=== PATIENT | female | born 1995 | race Hispanic/Latino ===

== ENCOUNTER 2021-12-10 22:11 | Emergency (ER) | payer OTHER ==
[2021-12-11] MEDS ORDERED: Ibuprofen 200 MG TAB ONE (01:25)
== END 2021-12-11 02:14 | disposition home or self-care (01) ==
LOC: CSHERS 22:11
DX: H61.21 Impacted cerumen, right ear (principal)
CPT/HCPCS: 69209

== ENCOUNTER 2022-05-14 10:57 | Emergency (ER) | payer OTHER | END 2022-05-14 12:00 | disposition home or self-care (01) | LOC: CSHERS 10:57 | DX: U07.1 COVID-19 (principal) | CPT/HCPCS: 99284; U0003; U0005 ==

== ENCOUNTER 2023-04-06 21:22 | Emergency (ER) | payer OTHER ==
[2023-04-06 22:37] LABS: #Monocytes 0.6 10x3/uL (0.0-1.1); #Neutrophils 6.2 10x3/uL (1.5-8.4); %Basophils 0.2 % (0.0-2.0); %Eosinophils 0.5 % (0.0-6.0); %Lymphocytes 20.8 % (18.0-47.0); %Monocytes 6.4 % (0.0-10.0); %Neutrophils 71.9 % (40.0-75.0); Hemoglobin 12.9 g/dL (12.0-15.5); Mean Corpuscular HGB CONC 33.6 g/dL (32.0-36.0); Mean Corpuscular Hemoglobin 30.9 pg (27.0-33.0); Mean Corpuscular Volume 91.9 fl (81.6-98.3); Mean Platelet Volume 9.3 fl (7.4-10.4); Platelet Count 299 10x3/uL (150-450); RBC Distribution Width 13.1 % (11.5-14.5); Red Blood Cell (RBC) Count 4.18 10x6/uL (3.90-5.03); White Blood Cell (WBC) Count 8.6 10x3/uL (3.5-10.5)
[2023-04-06 22:45] LABS: ALT (SGPT) 53 U/L (8-55); AST (SGOT) 43 U/L (5-34); Albumin 4.4 g/dL (3.5-5.0); Alkaline Phosphatase 59 U/L (40-110); Anion Gap 15 mmol/L (10-20); BUN (Urea Nitrogen) 11 mg/dL (7.0-18.7); Bilirubin, Total 0.5 mg/dL (0.2-1.2); Calc. Creatinine Clearance 0 mL/min (70-130); Calcium 9.1 mg/dL (7.8-10.44); Carbon Dioxide 20 mmol/L (22-29); Chloride 103 mmol/L (98-107); Estimated GFR 114; Globulin 2.8 g/dL (2.4-3.5); Glucose 87 mg/dL (70-105); Lipase 20 U/L (8-78); Potassium 3.6 mmol/L (3.5-5.1); Protein, Total 7.2 g/dL (6.0-8.3); Sodium 134 mmol/L (136-145)
[2023-04-06] MEDS ORDERED: Ondansetron PF 4 MG/2 ML Vial ONE (23:00)
[2023-04-06 23:02] LABS: Bilirubin Neg (Negative); Blood, Urine Negative (Negative); Clarity Clear (Clear); Glucose, Urine (Dipstick) Normal (Negative); Ketone, Urine 50 mg/dL (Negative); Leukocyte 500 (Negative); Nitrite Negative (Negative); Protein, Urine (Dipstick) Negative (Neg-Trace); Urobilinogen Normal mg/dL (Less than 2); pH, Urine 6.5 (5.0-9.0)
[2023-04-06 23:14] LABS: CAUTI Indications for Culture Pregnancy; RBC/HPF 0-3 HPF (0-3)
[2023-04-06 23:15] LABS: Bacteria/HPF Rare-Few HPF (None Seen)
[2023-04-06 23:16] LABS: Urine Culture Reflex Yes Yes
== END 2023-04-06 23:47 | disposition home or self-care (01) ==
LOC: CSHERS 21:22
DX: O99.891 Other specified diseases and conditions complicating pregnancy (principal); R10.13 Epigastric pain; Z3A.01 Less than 8 weeks gestation of pregnancy
CPT/HCPCS: 76856; 80053; 81001; 83690; 84484; 84702; 85025; 87086; 93005; J2405

== ENCOUNTER 2023-07-25 10:34 | Emergency (ER) | payer OTHER ==
[2023-07-25 11:38] LABS: #Monocytes 0.4 10x3/uL (0.0-1.1); %Basophils 0.2 % (0.0-2.0); %Eosinophils 0.6 % (0.0-6.0); %Lymphocytes 17.7 % (18.0-47.0); %Monocytes 6.3 % (0.0-10.0); %Neutrophils 74.7 % (40.0-75.0); Hematocrit 33.5 % (34.9-44.5); Hemoglobin 10.8 g/dL (12.0-15.5); Mean Corpuscular HGB CONC 32.2 g/dL (32.0-36.0); Mean Corpuscular Volume 96.3 fl (81.6-98.3); Mean Platelet Volume 10.2 fl (7.4-10.4); Platelet Count 221 10x3/uL (150-450); RBC Distribution Width 14.2 % (11.5-14.5); Red Blood Cell (RBC) Count 3.48 10x6/uL (3.90-5.03); White Blood Cell (WBC) Count 6.7 10x3/uL (3.5-10.5)
[2023-07-25 11:53] LABS: ALT (SGPT) 13 U/L (8-55); AST (SGOT) 16 U/L (5-34); Albumin 3.3 g/dL (3.5-5.0); Alkaline Phosphatase 50 U/L (40-110); Anion Gap 10 mmol/L (10-20); BUN (Urea Nitrogen) 5 mg/dL (7.0-18.7); Bilirubin, Total 0.3 mg/dL (0.2-1.2); Calc. Creatinine Clearance 0 mL/min (70-130); Calcium 8.7 mg/dL (7.8-10.44); Carbon Dioxide 23 mmol/L (22-29); Chloride 109 mmol/L (98-107); Estimated GFR 131; Globulin 2.7 g/dL (2.4-3.5); Glucose 72 mg/dL (70-105); Magnesium 1.8 mg/dL (1.6-2.6); Potassium 4.1 mmol/L (3.5-5.1); Sodium 138 mmol/L (136-145)
[2023-07-25 13:33] LABS: Bilirubin Neg (Negative); Blood, Urine Negative (Negative); Clarity Clear (Clear); Glucose, Urine (Dipstick) Normal (Negative); Ketone, Urine Negative (Negative); Leukocyte 100 (Negative); Nitrite Negative (Negative); Protein, Urine (Dipstick) Negative (Neg-Trace); Urobilinogen Normal mg/dL (Less than 2)
[2023-07-25 13:55] LABS: Bacteria/HPF None Seen HPF (None Seen); CAUTI Indications for Culture Alt mental st,lethar; RBC/HPF None Seen HPF (0-3); Squamous Epithelial 0-3 HPF (0-3); WBC/HPF 0-3 HPF (0-3)
[2023-07-25 13:56] LABS: Urine Culture Reflex No No
== END 2023-07-25 14:12 | disposition home or self-care (01) ==
LOC: CSHERS 10:34
DX: O26.812 Pregnancy related exhaustion and fatigue, second trimester (principal); Z3A.23 23 weeks gestation of pregnancy
CPT/HCPCS: 36415; 80053; 81001; 83735; 85025; 99285

== ENCOUNTER 2023-09-07 14:27 | Day surgery (SDC) | payer OTHER ==
[2023-09-07 15:06] VITALS: BMI 30.2
[2023-09-07] MEDS ORDERED: hydrALAZINE 20 MG/ML VIAL SLOW IVP PRN (15:42)
== END 2023-09-07 17:40 | disposition home or self-care (01) ==
LOC: CSHLD/OP 14:27
PROVIDERS: ATTEND Obstetrics & Gynecology
DX: O9A.213 Injury, poisoning and certain other consequences of external causes complicating pregnancy, third trimester (principal); R10.2 Pelvic and perineal pain; M25.559 Pain in unspecified hip; Z3A.29 29 weeks gestation of pregnancy; W19.XXXA Unspecified fall, initial encounter